=== PATIENT | male | born 1995 | race Caucasian/White ===

== ENCOUNTER 2020-12-20 21:55 | Emergency (ER) | payer OTHER ==
[~2020-12-20 21:55] MED LIST: CLARITIN10 M2; PROVENTIL HFA6.7 G1; SINGULAIR 10 MG10 M1
== END 2020-12-20 22:01 | disposition left against medical advice (07) ==
LOC: M.ERS 21:55
DX: Z53.21 Procedure and treatment not carried out due to patient leaving prior to being seen by health care provider (principal)